=== PATIENT | female | born 1970 | race Two or more races ===

== ENCOUNTER 2023-11-24 17:59 | Emergency (ER) | payer MEDICAID ==
[~2023-11-24] VITALS: Ht 149.9 cm; Wt 60.0 kg
[2023-11-24 18:27] VITALS: BP 145/86; PULSE 82; RESP 16; O2SAT 100
[2023-11-24 19:11] VITALS: TEMP 97.7
[2023-11-24] MEDS: IBUPROFEN 400 MG TAB PO ONE (19:11)
[2023-11-24] MEDS ORDERED: CYCL-837 PO (21:01)
== END 2023-11-24 21:43 | disposition home or self-care (01) ==
LOC: ER 17:59
DX: M25.511 Pain in right shoulder (principal); E78.5 Hyperlipidemia, unspecified
CPT/HCPCS: 71250; 73000